=== PATIENT | female | born 1960 | race Two or more races ===

== ENCOUNTER → 2024-08-02 | Outpatient (CLI) | payer MEDICARE, SELFPAY ==
--- NOTE | 2024-08-02 08:30 | XR_ITS ---
Examination: Breast ultrasound, unilateral, right complete Date and time of exam: August 02, 2024 0823 hours INDICATIONS: Right breast sonogram October 20, 2023 2:00 nodule 10 mm 10:00 nodule 6 mm Technique: Real-time dillon scale ultrasonographic imaging performed right breast including all 4 quadrants as well as nipple retroareolar and axillary region. Findings: 2:00 nodule is irregular margins 13 x 13 mm 10:00 nodule circumscribed 5 x 4 mm IMPRESSION: BI-RADS Category 4: Suspicious for malignancy Suspicious mass 2:00 position right breast, biopsy is needed to exclude breast carcinoma, this mass is amenable to ultrasound-guided breast biopsy for diagnosis
--- NOTE | 2024-08-02 09:00 | XR_ITS ---
Examination: Diagnostic digital mammography, unilateral, right Computer aided detection 3-D breast Tomosynthesis, unilateral Date and time of exam: August 02, 2024 0835 hours INDICATIONS: Mammogram October 20, 2023 architectural distortion outer right breast Technique: Nonmagnified MLO, CC views of the right breast have been obtained, reconstructed from 3-D Tomosynthesis images. R2 computer aided detection program utilized for evaluation of suspicious masses and/or abnormal calcifications. 3-D Tomosynthesis images obtained. Findings: The breast is heterogeneously dense, which may obscure small masses Focal asymmetry outer right breast remains Please see the right breast sonogram report today indicating 2:00 nodule irregular margins right breast 13 x 13 mm Impression: BI-RADS category 4: Suspicious for malignancy Please see the right breast sonogram report today indicating BI-RADS 4 suspicious nodule 2:00 position right breast, irregular margins, 13 x 13 mm, biopsy of this nodule is needed to exclude breast carcinoma, this nodule is amenable to ultrasound-guided breast biopsy for diagnosis Also recommend 6 month right mammogram follow-up
== END | disposition home or self-care (01) ==
PROVIDERS: PCP Physician Assistant Medical; Referring Provider Physician Assistant Medical; Visit Provider Physician Assistant Medical
DX: R92.341 Mammographic extreme density, right breast (principal); N63.12 Unspecified lump in the right breast, upper inner quadrant
CPT/HCPCS: 76641; 77061; 77065; G0279

== ENCOUNTER → 2024-10-17 | Outpatient (CLI) | payer MEDICARE, SELFPAY ==
[2024-10-16 12:00] LABS: Basophils # (Auto) 0.1 Thou/mm3 (0.0-0.2); Basophils % (Auto) 1 % (0-2.5); Eosinophils # (Auto) 0.2 Thou/mm3 (0.0-0.5); Eosinophils % (Auto) 3 % (0-10); Hematocrit 43.7 % (36.0-46.0); Immature Granulocytes % (Auto) 0 % (0-0); Immature Granulocytes Auto 0.02 Thou/mm3 (0.00-0.00); Lymphocytes # (Auto) 1.5 Thou/mm3 (1.0-4.8); Lymphocytes % (Auto) 26 % (10-50); Mean Corpuscular HGB Conc 34.3 g/dl (31.0-37.0); Mean Corpuscular Hemoglobin 29.4 pg (25.0-35.0); Mean Corpuscular Volume 86 fL (80-100); Monocytes # (Auto) 0.5 Thou/mm3 (0.0-0.8); Monocytes % (Auto) 8 % (0-12); Neutrophils # (Auto) 3.6 Thou/mm3 (1.8-7.7); Neutrophils % (Auto) 62 % (37-80); Nucleated Red Blood Cell % 0 /100 WBC (0); Platelet Count 212 Thou/mm3 (140-440); RDW Standard Deviation 38.4 fL (36.4-46.3); White Blood Count 5.8 Thou/mm3 (3.6-11.0)
[2024-10-16 12:07] LABS: Partial Thromboplastin Time 28.9 Seconds (22.0-36.0); Prothrombin Time 10.7 Seconds (9.0-12.2)
--- NOTE | 2024-10-17 12:30 | XR_ITS ---
Examinations: Ultrasound-guided percutaneous breast biopsy, right breast 2:00 nodule Right breast sonography limited INDICATIONS: Right breast sonogram August 02, 2024 BI-RADS 4 suspicious nodule 2:00 position right breast. Exam date and time: 06/19/2024 1205 hours. Informed consent provided. Technique: A timeout was completed verifying correct patient, procedure, site, positioning, and special equipment if applicable Informed consent provided. The patient was placed in a supine position for the breast biopsy. Sonographic images of the breast were performed for localization of the suspicious nodule The patient's breast was prepped and draped in sterile fashion. Maximum sterile barrier technique, hand hygiene, ultrasound sterile technique 1% lidocaine was used to anesthetize the skin and breast adjacent to the suspicious nodule. Utilizing ultrasonographic guidance, 8 core biopsies were obtained of the suspicious nodule utilizing an 18-gauge BioPince needle. The specimens appears satisfactory. US guided breast biopsy marker placement. Estimated blood loss 3 cc. The patient tolerated the procedure well and there were no complications. Impression: Successful ultrasound-guided percutaneous breast biopsy, right breast 2:00 nodule. Ultrasound guided breast biopsy marker placement.
== END | disposition home or self-care (01) ==
LOC: SDIM 11:38 → SIRX 11:39
PROVIDERS: Radiology Diagnostic Radiology; PCP Physician Assistant Medical; Referring Provider Physician Assistant Medical; Visit Provider Physician Assistant Medical
DX: D24.1 Benign neoplasm of right breast (principal); Z01.812 Encounter for preprocedural laboratory examination
CPT/HCPCS: 19083; 36415; 85025; 85610; 85730; A4648